=== PATIENT | female | born 1965 | race Hispanic/Latino ===

== ENCOUNTER → 2024-05-24 | Day surgery (SDC) | payer OTHER ==
[~2024-05-24] MED LIST: FENTANYL CITRATE/PF 100MCG/2 ML INJ ONE; GLYCOPYRROLATE INJ 0.2 MG/ML VIAL ONE; PROPOFOL IV EMULSION 10 MG/ML 20 ML VIAL ONE; PROPOFOL IV EMULSION 10 MG/ML 50 ML VIAL IV ONE; VITAMIN C1000 MG PO; VITAMIN D31 ML PO; VITAMIN K100 MCG PO
[2024-05-24] MEDS: LACTATED RINGER'S 1,000 ML ONE (08:33)
[2024-05-24 10:49] VITALS: TEMP 97.7
[2024-05-24 11:10] VITALS: BP 103/71; PULSE 76; RESP 18; O2SAT 99
== END | disposition home or self-care (01) ==
LOC: OR 07:58 → EDBD 11:00
PROVIDERS: ATTEND Internal Medicine Gastroenterology
DX: Z12.11 Encounter for screening for malignant neoplasm of colon (principal); D12.4 Benign neoplasm of descending colon; D12.5 Benign neoplasm of sigmoid colon; K62.1 Rectal polyp; K57.30 Diverticulosis of large intestine without perforation or abscess without bleeding; K64.8 Other hemorrhoids; E66.9 Obesity, unspecified; Z01.810 Encounter for preprocedural cardiovascular examination
CPT/HCPCS: 45385; 93005; J2704 ×2; J3010; J7121; 45378